=== PATIENT | female | born 1980 | race Caucasian/White ===

== ENCOUNTER 2020-01-07 19:27 | Emergency (ER) | payer MEDICAID ==
[~2020-01-07] VITALS: Ht 160 cm; Wt 72.6 kg
[2020-01-07 19:39] VITALS: BP 180/94; Ht 160 cm; Wt 72.6 kg
== END 2020-01-07 20:16 | disposition home or self-care (01) ==
LOC: ED 19:27
DX: L30.9 Dermatitis, unspecified (principal); I10 Essential (primary) hypertension; E10.9 Type 1 diabetes mellitus without complications; Z90.49 Acquired absence of other specified parts of digestive tract
CPT/HCPCS: 82962

== ENCOUNTER 2020-07-22 18:39 | Emergency (ER) | payer MEDICAID ==
[~2020-07-22] VITALS: Ht 160 cm; Wt 70.3 kg
[2020-07-22 18:54] VITALS: Ht 160 cm; Wt 70.3 kg
[2020-07-22 21:02] VITALS: BP 181/70
== END 2020-07-22 21:02 | disposition home or self-care (01) ==
LOC: ED 18:39
DX: L30.9 Dermatitis, unspecified (principal); I10 Essential (primary) hypertension; E10.9 Type 1 diabetes mellitus without complications; Z90.89 Acquired absence of other organs
CPT/HCPCS: 82962